=== PATIENT | male | born 1970 | race Caucasian/White ===

== ENCOUNTER 2024-05-03 16:12 | Emergency (ER) | payer SELFPAY ==
--- NOTE | 2024-05-03 16:37 | ER ---
Nurse's Notes [facility] Name: Garret Vasquez Age: 53 yrs Sex: Male : 1970 Arrival Date: 05/03/2024 Time: 16:12 Bed 4 Private MD: Diagnosis: Cellulitis of finger Presentation: 05/03 16:22 Chief complaint: Patient states: was fishing on Tuesday , Tuesday he developed open iw sores on right hand , is worried that it is flesh eating bacteria. Coronavirus screen: At this time, the client does not indicate any symptoms associated with coronavirus-19. Ebola Screen: No symptoms or risks identified at this time. Initial Sepsis Screen: Does the patient meet any 2 criteria? No. Patient's initial sepsis screen is negative. Does the patient have a suspected source of infection? No. Patient's initial sepsis screen is negative. Risk Assessment: Do you want to hurt yourself or someone else? Patient reports no desire to harm self or others. Onset of symptoms was May 01, 2024. 16:22 Method Of Arrival: Ambulatory iw 16:22 Acuity: TEJA 3 iw Historical: - Allergies: 16:23 No Known Allergies; iw - Home Meds: 16:23 None [Active]; iw - PMHx: 16:23 None; iw - PSHx: 16:23 arm; iw - Immunization history:: Adult Immunizations not up to date. - Infectious Disease History:: Denies. - Social history:: Smoking status: Patient reports the use of cigarette tobacco products, Smoking status: Reported history of juuling and/or vaping. Screenin:53 [facility] ED Fall Risk Assessment (Adult) History of falling in the last 3 months, ph including since admission No falls in past 3 months (0 pts) Confusion or Disorientation No (0 pts) Intoxicated or Sedated No (0 pts) Impaired Gait No (0 pts) Mobility Assist Device Used No (0 pt) Altered Elimination No (0 pt) Score/Fall Risk Level 0 - 2 = Low Risk Oriented to surroundings, Maintained a safe environment, Hourly rounding (assess needs \T\ fall precautionary measures) done. Abuse screen: Denies threats or abuse. Denies injuries from another. Nutritional screening: No deficits noted. Tuberculosis screening: No symptoms or risk factors identified. Assessment: 16:50 General: Appears in no apparent distress. Behavior is calm, cooperative. Pain: Denies ph pain. Neuro: Level of Consciousness is awake, alert, obeys commands, Oriented to person, place, time, situation. Cardiovascular: Capillary refill < 3 seconds in bilateral fingers Patient's skin is warm and dry. Respiratory: Airway is patent Respiratory effort is even, unlabored. Derm: Skin is pink, warm \T\ dry. Wound noted right hand. Vital Signs: 16:22 BP 123 / 82; Pulse 100; Resp 16; Temp 98.2; Pulse Ox 100% ; Weight 65.77 kg; Height 6 iw ft. 0 in. ; Pain 1/10; 16:22 Body Mass Index 19.67 (65.77 kg, 182.88 cm) 16:22 Pain Scale: Adult ED Course: 16:14 Patient arrived in ED. mg5 16:14 Estiven Aguiar MD is Attending Physician. ec2 16:23 Triage completed. iw 16:24 Arm band placed on. 16:49 Kae Metz RN is Primary Nurse. ph 16:51 Patient has correct armband on for positive identification. Bed in low position. Call ph light in reach. 16:51 No provider procedures requiring assistance completed. Patient did not have IV access ph during this emergency room visit. Administered Medications: 16:49 Drug: Cephalexin PO 500 mg PO once Route: PO; ph 16:50 Follow up: Response: No adverse reaction; Medication Administered at Departure ph 16:50 Drug: LevOfloxacin PO 750 mg PO once Route: PO; ph 16:50 Follow up: Response: No adverse reaction; Medication administered at discharge. ph Medication: 16:51 VIS not applicable for this client. ph Outcome: 16:36 Discharge ordered by . ec2 16:51 Discharged to home ambulatory, ph 16:51 Condition: good 16:51 Discharge instructions given to patient, Instructed on discharge instructions, follow up and referral plans. medication usage, Demonstrated understanding of instructions, follow-up care, medications, Prescriptions given X 2, 16:52 Patient left the ED. ph Signatures: Sofy Cannon RN RN Kae Metz RN RN [place] [id number] Estiven Aguiar MD MD ec2
--- NOTE | 2024-05-03 16:37 | EDPHYS ---
Physician Documentation [facility] Name: Garret Vasquez Age: 53 yrs Sex: Male : 1970 Arrival Date: 05/03/2024 Time: 16:12 Bed 4 Private MD: ED Physician Estiven Aguiar HPI: 05/03 16:38 This 53 yrs old Male presents to ER via Ambulatory with complaints of Flesh ec2 Eating [place]. 16:38 Patient arrives today for evaluation of a spot on his hand. Patient reports that he has ec2 been having some spots on the right hand along with some drainage. Patient reports he was recently fishing. Patient reports no fevers or chills, no nausea or vomiting, no significant medical problems, no daily medications.. Historical: - Allergies: 16:23 No Known Allergies; iw - Home Meds: 16:23 None [Active]; iw - PMHx: 16:23 None; iw - PSHx: 16:23 arm; iw - Immunization history:: Adult Immunizations not up to date. - Infectious Disease History:: Denies. - Social history:: Smoking status: Patient reports the use of cigarette tobacco products, Smoking status: Reported history of juuling and/or vaping. ROS: 16:38 Constitutional: as per hpi ec2 Exam: 16:38 Constitutional: GEN: NAD Head: atraumatic Eyes: EOMI Ears: External ears are ec2 normal. CV: regular rate LUNGS: no respiratory distress ABD: non-distended SKIN: Multiple erythematous spots on the right hand, 1 over the middle PIP with drainage, no fluctuance appreciated. MSK: no evidence of trauma Vital Signs: 16:22 BP 123 / 82; Pulse 100; Resp 16; Temp 98.2; Pulse Ox 100% ; Weight 65.77 kg; Height 6 iw ft. 0 in. ; Pain 1/10; 16:22 Body Mass Index 19.67 (65.77 kg, 182.88 cm) iw 16:22 Pain Scale: Adult iw MDM: 16:28 Patient medically screened. ec2 16:38 Data reviewed: vital signs. ED course: Patient arrives today for skin evaluation. ec2 Examination remarkable for skin findings as above. Will treat for cellulitis. Considered processes such as abscesses, necrotizing fasciitis. Will discharge home. starting antibiotics. Return precautions given.. Administered Medications: 16:49 Drug: Cephalexin PO 500 mg PO once Route: PO; ph 16:50 Follow up: Response: No adverse reaction; Medication Administered at Departure ph 16:50 Drug: LevOfloxacin PO 750 mg PO once Route: PO; ph 16:50 Follow up: Response: No adverse reaction; Medication administered at discharge. ph Disposition Summary: 05/03/24 16:36 Discharge Ordered Notes: Location: Home ec2 Condition: Stable ec2 Diagnosis - Cellulitis of finger ec2 Followup: ec2 - With: Private Physician - When: - Reason: Re-evaluation by your physician Discharge Instructions: - Discharge Summary Sheet ec2 - Cellulitis, Adult, [id number] ec2 Forms: - Medication Reconciliation Form ec2 - Antibiotic Education ec2 - Prescription Opioid Use ec2 - Patient Portal Instructions ec2 - Leadership Thank You Letter ec2 Prescriptions: - Cephalexin 500 mg Oral capsule - take 1 capsule ORAL route every 6 hours for 7 days; 28 capsule; Refills: 0, ec2 Product Selection Permitted - levofloxacin 750 mg Oral tablet - take 1 tablet ORAL route once daily; 7 tablet; Refills: 0, Product Selection ec2 Permitted Signatures: Sofy Cannon RN RN Kae Metz RN RN Estiven Aguiar MD MD ec2
[2024-05-03] MEDS ORDERED: levoFLOXacin 750 MG TAB ONE (16:41)
[2024-05-03] MEDS ORDERED: CEPHALEXIN 250 MG CAP ONE (16:41)
[2024-05-03 17:26] VITALS: BP 123/82; TEMP 98.2; O2SAT 100
== END 2024-05-03 16:52 | disposition home or self-care (01) ==
LOC: ER 16:12
DX: L03.011 Cellulitis of right finger (principal); F17.210 Nicotine dependence, cigarettes, uncomplicated
CPT/HCPCS: 99283